=== PATIENT | male | born 1995 | race Caucasian/White ===

== ENCOUNTER 2020-08-03 17:18 | Emergency (ER) | payer OTHER, SELFPAY ==
[2020-08-03 17:30] VITALS: BP 130/72; PULSE 78; RESP 18; TEMP 36.6; O2SAT 98
[2020-08-03] MEDS: methylPREDNISolone ACETATE 40 MG/ML VIAL 80 MG IM (17:32)
--- NOTE | 2020-08-03 17:32 | ED.SKABFB ---
HPI - Skin/Abscess/Foreign Bdy General Chief complaint: Skin/Abscess/Foreign Body Stated complaint: rash Source: patient Mode of arrival: ambulatory Limitations: no limitations History of Present Illness HPI narrative: this patient has a macular rash over his chest and abdomen that he has had for over a year itchy and currently tender and with some mild pain with no fever chills no shortness of breath no nausea vomiting no abdominal pain currently not exposed to any irritants as far as he knows. complaint: rash Onset (ago): year(s) Tetanus up to date: no Location: chest Severity: moderate Quality: aching Pain Consistency: constant Relieving factors: none Exacerbating factors: none Context: none Associated symptoms: denies other symptoms Related Data Allergies Allergy/AdvReac Type Severity Reaction Status Date / Time No Known Allergies Allergy Verified 08/03/20 17:29 Review of Systems Review of Systems: All systems reviewed & are unremarkable except as noted in HPI and below PMFSH Past Medical History Medical History Rash Social History Social History Gender identity (if verbalized by the patient): Male Exam Const: General: no acute distress Orientation/consciousness: patient oriented x3 HENMT: Head: normal to inspection Eyes: Conjunctivae: conjunctivae normal Pupils: Equal, round and reactive pupils present EOM: EOMs intact bilaterally Neck: Neck: normal visual inspection Chest: Chest palpation & inspection: normal inspection of the chest Resp: Effort & Inspection: normal respiratory effort Auscultation: clear to auscultation bilaterally Cardio: Rate: regular rate Rhythm: regular rhythm GI: GI Palp: Yes Soft to palpation : Testes: Testes normal Urinary Catheter: Urinary Catheter: patent and draining Back/Spine/Pelvis: Back: no CVA tenderness Skin: Other: red macular rash over chest and abdomen Neuro: General: patient oriented x3, moves all extremities and no meningeal signs Extrem: General: normal to inspection and no pedal edema Course Course Emergency Course: patient received a Depo-Medrol 80 mg IM and advised to take Benadryl and to follow-up and establish care with a primary care physician. Critical Care Time Critical Care Time Critical Care Time: No Discharge Plan Discharge Clinical Impression: Rash Patient Disposition: Home, Self-Care Condition: Stable Instructions: Antibiotic Form, Acute Rash (ED) Additional Instructions: take medicine as prescribed and follow-up with primary care physician within 1 week for further evaluation treatment. Prescriptions: New prednisone 20 mg tablet 20 mg PO DAILY Qty: 7 RF: 0 Follow-up/Referrals: UNKNOWN,DOCTOR [Primary Care Provider] - Time of Disposition: 17:36
[2020-08-03 17:40] VITALS: BP 132/72; PULSE 72; RESP 16; TEMP 36.8; O2SAT 96
== END 2020-08-03 17:43 | disposition home or self-care (01) ==
PROVIDERS: Emergency Provider Emergency Medicine
DX: R21 Rash and other nonspecific skin eruption (principal)
CPT/HCPCS: 96372; 99283; J1030

== ENCOUNTER 2022-05-21 23:52 | Emergency (ER) | payer OTHER, SELFPAY ==
[2022-05-21 23:55] VITALS: BP 138/90; PULSE 81; RESP 14; TEMP 36.5; O2SAT 99
--- NOTE | 2022-05-22 00:13 | ED.GENADULT ---
HPI - General Adult General Chief complaint: Psychiatric Symptoms Stated complaint: suicide Time Seen by Provider: 05/22/22 01:35 History of Present Illness HPI narrative: Ezekiel is a 26M with a PMH of tobacco abuse and tinea versicolor that was brought in by EMS for SI. He reports that he may have depression at baseline. He was at home drinking and watching the news when he called the hotline. He stated that he just needed somebody to talk to. He reportedly had feelings that it would be easier if he was gone but he has not intention, much less a plan on acting on these at this time. Related Data Home Medications Medication Instructions Recorded Confirmed melatonin 3 mg PO DAILY 05/22/22 05/22/22 Allergies Allergy/AdvReac Type Severity Reaction Status Date / Time No Known Allergies Allergy Verified 05/22/22 00:14 Review of Systems Review of Systems: All systems reviewed & are unremarkable except as noted in HPI and below PMFSH Past Medical History Medical History Rash Social History Social History Years smoked: 10 Smoking status: Current every day smoker Alcohol intake: current Alcohol use details: social Substance use: never Substance use type: does not use Living arrangements: with family Gender identity (if verbalized by the patient): Male Exam Const: General: healthy appearing and no acute distress Nutritional Appearance: well nourished Orientation/consciousness: patient oriented x3 HENMT: Head: normal to inspection Eyes: Conjunctivae: conjunctivae normal Pupils: Equal, round and reactive pupils present EOM: EOMs intact bilaterally Neck: Neck: normal visual inspection Chest: Chest palpation & inspection: normal inspection of the chest Resp: Effort & Inspection: normal respiratory effort Auscultation: clear to auscultation bilaterally Cardio: Rate: regular rate Rhythm: regular rhythm GI: Inspection: non-distended GI Palp: Yes Soft to palpation and No Tenderness to palpation present (GI) Back/Spine/Pelvis: Back: no CVA tenderness Skin: General skin exam: normal color Neuro: General: patient oriented x3 and moves all extremities Cranial nerves: Yes Nystagmus not present Extrem: General: normal to inspection Psych: Mental Status: mental status grossly normal Affect: normal affect Course Course Emergency Course: Ordered labs and EKG. EKG showed NSR with a rate of 71, normal axis, no ST elevation/depression or ectopy Care transferred to Dr. Mao at 0130 Vital Signs Vital signs: Vital Signs Temperature 97.7 F 05/21/22 23:55 Pulse Rate 81 05/21/22 23:55 Respiratory Rate 14 05/21/22 23:55 Blood Pressure 138/90 05/21/22 23:55 Pulse Oximetry 99 05/21/22 23:55 Temperature 97.7 F 05/21/22 23:55 Pulse Rate 78 05/22/22 06:52 Respiratory Rate 12 05/22/22 06:52 Blood Pressure 122/88 05/22/22 06:52 Pulse Oximetry 99 05/22/22 06:52 Medical Decision Making Vital Signs Vital Signs: Vital Signs Temperature 97.7 F 05/21/22 23:55 Pulse Rate 81 05/21/22 23:55 Respiratory Rate 14 05/21/22 23:55 Blood Pressure 138/90 05/21/22 23:55 Pulse Oximetry 99 05/21/22 23:55 Temperature 97.7 F 05/21/22 23:55 Pulse Rate 78 05/22/22 06:52 Respiratory Rate 12 05/22/22 06:52 Blood Pressure 122/88 05/22/22 06:52 Pulse Oximetry 99 05/22/22 06:52 Lab Data 05/22/22 00:13 05/22/22 00:13 Labs: Lab Results 05/22/22 05/22/22 05/22/22 Range/Units 00:13 00:13 00:13 WBC 9.5 (4.8-10.8) K/mm3 RBC 5.51 (4.70-6.10) M/mm3 Hgb 17.2 (14.0-18.0) g/dL Hct 52.8 (40.0-54.0) % MCV 95.8 (78.0-102.0) fL MCH 31.2 H (27.0-31.0) pg MCHC 32.6 (32.0-36.0) g/dL RDW 13.4 (11.6-14.4) % Plt Count 297 (150-420) K/mm3 MPV 10.2 (8.7-11.0) f
--- NOTE | 2022-05-22 00:15 | ECG_ITS ---
Measurements Intervals [place] Rate: 71 P: 54 NE: 182 QRS: 86 QRSD: 110 T: 47 QT: 369 QTc: 402 Interpretive Statements SINUS RHYTHM NORMAL ECG NO PREVIOUS ECG AVAILABLE FOR COMPARISON Electronically Signed On 05-22-2022 8:14:51 CDT by Sudheer Mims D.O.
[2022-05-22 00:20] LABS: Appearance Urine Clear (Clear); Bilirubin Urine Negative (Negative); Blood Urine Negative (Negative); Color Urine Light Yellow (Yellow); Glucose Urine UA Negative (Negative); Ketones Urine Negative (Negative); Leukocyte Esterase Ur Negative LEU/UL (Negative); Nitrate Urine Negative (Negative); Protein Urine Negative (Negative); Specific Grav Ur <= 1.005 (1.010-1.020); Urobilinogen Urine 0.2 mg/dL (0.2-1.0)
[2022-05-22 00:21] LABS: Hematocrit 52.8 % (40.0-54.0); Hemoglobin 17.2 g/dL (14.0-18.0); Mean Corpuscular HGB Conc 32.6 g/dL (32.0-36.0); Mean Corpuscular Hemoglobin 31.2 pg (27.0-31.0); Mean Corpuscular Volume 95.8 fL (78.0-102.0); Mean Platelet Volume 10.2 fl (8.7-11.0); Platelet Count Result 297 K/mm3 (150-420); Red Blood Count 5.51 M/mm3 (4.70-6.10); Red Cell Distribution Width 13.4 % (11.6-14.4); White Blood Count 9.5 K/mm3 (4.8-10.8)
[2022-05-22 00:26] LABS: Add Urine Microscopic? NO; Amphetamine Screen Urine Negative (Negative); Barbiturate Screen Urine Negative (Negative); Benzodiazepines Screen Urine Negative (Negative); Cannabinoid Screen Urine Negative (Negative); Cocaine Screen Urine Negative (Negative); Methadone Screen Urine Negative (Negative); Opiate Screen Urine Negative (Negative); Phencyclidine Screen Urine Negative (Negative)
[2022-05-22 00:33] LABS: Acetaminophen < 2 ug/mL (10-30); Alanine Aminotransferase 43 U/L (16-63); Alkaline Phosphatase 77 U/L (46-116); Anion Gap 13 mmol/L (8-16); Aspartate Amino Transferase 48 U/L (15-37); Bilirubin,Total 0.3 mg/dL (0.00-1.00); Blood Urea Nitrogen 12 mg/dL (7-18); Calcium 8.9 mg/dL (8.5-10.1); Carbon Dioxide 22 mmol/L (21-32); Chloride 104 mmol/L (98-108); Estimated CRCL calculation 168 ml/min; Estimated Glomerular Filt Rate > 60; Ethanol 154 mg/dL (0-6); Glucose 101 mg/dL (70-99); Osmolality Calculated 287 mOsm/kg (285-295); Potassium 5.5 mmol/L (3.5-5.1); Salicylate 6.7 mg/dL (2.8-20.0); Sodium 139 mmol/L (136-145); Total Protein 8.4 g/dL (6.4-8.2)
[2022-05-22 00:41] LABS: Band Neutrophils Percent 0 % (0-6); Basophils Percent Manual 0 % (0-1); Eosinophils Absolute Manual 0.66 K/mm3 (0.02-0.5); Eosinophils Percent Manual 7 % (1-6); Lymphocytes Absolute Manual 3.32 K/mm3 (1.1-4.5); Lymphocytes Percent Manual 35 % (18-44); Monocytes Absolute Manual 0.66 K/mm3 (0.1-0.90); Monocytes Percent Manual 7 % (3-9); Neutrophils Absolute Manual 4.84 K/mm3 (1.3-6.7); Neutrophils Percent Manual 51 % (46-73); Platelet Estimate Adequate (Adequate); Total Cells Counted 100
[2022-05-22 00:56] LABS: SARS-CoV-2 RNA PCR Negative (Negative)
[2022-05-22] MEDS: NICOTINE (*PBKC) 21 MG PATCH 1 PATCH TRANSDERM (01:10)
--- NOTE | 2022-05-22 01:35 | ED.GENADULT ---
HPI - General Adult General Chief complaint: Psychiatric Symptoms Stated complaint: suicide Time Seen by Provider: 05/22/22 01:35 History of Present Illness HPI narrative: I TOOK OVER FROM THE PREVIOUS PROVIDER IN THE MANAGEMENT OF THIS PATIENT. PLEASE REFER TO THEIR NOTE FOR FURTHER DETAILS. In brief, the patient is a 26-year-old male with suicidal ideation, without a plan, who is also currently intoxicated, with an alcohol level of 154 at midnight. He is not homicidal, has no hallucinations. He is not medically cleared at this point. Repeat alcohol level pending for 3:30 a.m.. The patient remained stable. He has previously been hospitalized for Behavioral Health, with them in the past. He currently denies being suicidal, just wants to talk to someone. No somatic complaints. Related Data Home Medications Medication Instructions Recorded Confirmed melatonin 3 mg PO DAILY 05/22/22 05/22/22 Allergies Allergy/AdvReac Type Severity Reaction Status Date / Time No Known Allergies Allergy Verified 05/22/22 00:14 Review of Systems Review of Systems: All systems reviewed & are unremarkable except as noted in HPI and below Constitutional: Constitutional: Reports as per HPI, Reports no additional constitutional complaints, Denies chills, Denies excessive sweating, Denies fatigue, Denies fever(s), Denies headache(s) and Denies weakness Eyes: Eyes: Reports as per HPI, Reports no additional eye complaints, Denies change in vision and Denies photophobia ENT: Reports system reviewed and no additional complaints, except as documented, Reports as per HPI, Denies dysphagia, Denies vertigo, Denies dizziness, Denies headache(s), Denies lip swelling, Denies nasal congestion, Denies sore throat, Denies throat swelling and Denies tongue swelling Cardiovascular: Cardiovascular: Reports as per HPI, Reports no additional cardiovascular complaints, Denies chest pain, Denies syncope, Denies rapid heart rate and Denies dyspnea Respiratory: Respiratory: Reports as per HPI, Reports no additional respiratory complaints, Denies chest congestion, Reports cough (chronic smoker's cough), Denies dyspnea and Denies wheezing Gastrointestinal: Gastrointestinal: Reports as per HPI, Reports no additional gastrointestinal complaints, Denies abdominal pain, Denies constipation, Denies dysphagia, Denies diarrhea, Denies nausea and Denies vomiting Genitourinary: Genitourinary: Reports as per HPI, Denies hematuria, Denies oliguria, Denies dysuria, Denies urinary frequency, Denies urinary incontinence and Denies urinary urgency Musculoskeletal: Musculoskeletal: Reports no additional musculoskeletal complaints, Denies back pain, Denies myalgias, Denies arthralgias, Denies joint swelling and Denies numbness Integumentary/Breasts: Skin/Breast: Reports system reviewed and no additional complaints, except as docu, Denies pruritus, Denies erythema, Denies rash and Denies skin ulcer Neurologic: Reports system reviewed and no additional complaints, except as documented, Reports as per HPI, Denies confusion, Denies vertigo, Denies dizziness, Denies syncope, Denies headache(s), Denies focal weakness, Denies numbness and Denies weakness Psychiatric: Psychiatric: Reports as per HPI, Denies anxiety, Denies confusion, Denies depression, Denies homicidal ideation and Reports suicidal ideation (ideation but no plan; and now denies suicidal ideation: wants to talk only) Endocrine: Endocrine: Reports no additional endocrine complaints, Denies excessive sweating, Denies fatigue, Denies polydipsia and Denies polyuria Hematologic/Lymphatic: Hematologic/Lymphatic: Reports no additional hematologic/lymphatic complaints, Denies easy bleeding and Denies easy bruising Allergic/Immunologic: Allergic/Immunologic: Reports no additional allergic/immunologic complaints, Denies lip swelling, Denies throat swelling, Denies tongue swelling and Denies wheezing PMFSH Past Medical History Medical Hist
[2022-05-22 03:48] LABS: Ethanol 74 mg/dL (0-6)
[2022-05-22 06:52] VITALS: BP 122/88; PULSE 78; RESP 12; O2SAT 99
== END 2022-05-22 07:17 | disposition home or self-care (01) ==
PROVIDERS: Emergency Provider Emergency Medicine
DX: F32.A Depression, unspecified (principal); F10.129 Alcohol abuse with intoxication, unspecified; F17.210 Nicotine dependence, cigarettes, uncomplicated; Z20.822 Contact with and (suspected) exposure to COVID-19; Y90.3 Blood alcohol level of 60-79 mg/100 ml
CPT/HCPCS: 36415; 80053; 80307; 81003; 85025; 93005; 99284; A9270; U0003; U0005

== ENCOUNTER 2022-05-30 21:41 | Emergency (ER) | payer OTHER, SELFPAY ==
[2022-05-30 21:58] VITALS: BP 123/76; PULSE 90; RESP 16; TEMP 36.3; O2SAT 100
--- NOTE | 2022-05-30 22:05 | ED.GENADULT ---
HPI - General Adult General Chief complaint: Psychiatric Symptoms <French Miguel MD - Last Filed: 05/30/22 22:07> Stated complaint: si <Fernch Miguel MD - Last Filed: 05/30/22 22:07> Time Seen by Provider: 05/30/22 21:43 <French Miguel MD - Last Filed: 05/30/22 22:07> History of Present Illness HPI narrative: A 26-year-old male presenting ED for suicidal ideation. Patient is intoxicated. He was at a bar drinking throughout most the day and told some people to bar that he was thinking of hurting himself. They called police and then the patient was brought to the hospital for psychiatric evaluation. At this time the patient is denying suicidal or homicidal ideation. He does have access to a firearm at home. He has attempted suicide in the past by hanging but was unable to go through with it. He denies other drugs. Denies visual or auditory hallucinations. Denies history of psychiatric illness. <French Miguel MD - Last Filed: 05/30/22 22:07> Related Data Home medications: Home Medications Medication Instructions Recorded Confirmed melatonin 3 mg PO DAILY 05/22/22 05/22/22 <French Miguel MD - Last Filed: 05/30/22 22:07> Allergies/adverse reactions: Allergies Allergy/AdvReac Type Severity Reaction Status Date / Time No Known Allergies Allergy Verified 05/30/22 22:06 <French Miguel MD - Last Filed: 05/30/22 22:07> [facility] Past Medical History Medical History: Medical History Rash <French Miguel MD - Last Filed: 05/30/22 22:07> Social History Social History: Social History Years smoked: 10 Smoking status: Current every day smoker Alcohol intake: current Alcohol use details: social Substance use: never Substance use type: does not use Living arrangements: with family Gender identity (if verbalized by the patient): Male <French Miguel MD - Last Filed: 05/30/22 22:07> Exam Narrative: APPEARANCE: No apparent distress. Head: atraumatic. EYES: EOMI, NOSE: Atraumatic NECK: Trachea midline RESPIRATORY: No increased rate of breathing CARDIOVASCULAR: RRR, ABDOMINAL: Non-distended MUSCULOSKELETAl: No obvious deformities NEURO: Alert. Moving 4/4 extremities SKIN:: Warm, dry. Normal color PSYCHIATRIC: Normal affect <French Miguel MD - Last Filed: 05/30/22 22:07> Course Reevaluation(s) Reevaluation #1: Patient was evaluated by the crisis counselor and was agreeable with discharge. Patient did sign a safety agreement. All question concerns were addressed and patient was comfortable with the plan for discharge and close follow-up. Patient was well-appearing at time of discharge. <Rony Cope MD - Last Filed: 05/31/22 18:22> Vital Signs Vital signs: Vital Signs Temperature 97.4 F L 05/30/22 21:58 Pulse Rate 90 05/30/22 21:58 Respiratory Rate 16 05/30/22 21:58 Blood Pressure 123/76 05/30/22 21:58 Pulse Oximetry 100 05/30/22 21:58 Oxygen Delivery Room Air 05/30/22 21:58 Temperature 97.4 F L 05/30/22 21:58 Pulse Rate 70 05/31/22 08:52 Respiratory Rate 12 05/31/22 08:52 Blood Pressure 144/76 H 05/31/22 08:52 Pulse Oximetry 98 05/31/22 08:52 Oxygen Delivery Room Air 05/30/22 21:58 <French Miguel MD - Last Filed: 05/30/22 22:07> Vital Signs Temperature 97.4 F L 05/30/22 21:58 Pulse Rate 90 05/30/22 21:58 Respiratory Rate 16 05/30/22 21:58 Blood Pressure 123/76 05/30/22 21:58 Pulse Oximetry 100 05/30/22 21:58 Oxygen Delivery Room Air 05/30/22 21:58 Temperature 97.4 F L 05/30/22 21:58 Pulse Rate 70 05/31/22 08:52 Respiratory Rate 12 05/31/22 08:52 Blood Pressure 144/76 H 05/31/22 08:52 Pulse Oximetry 98 05/31/22 08:52 Oxygen Delivery Room Air 05/30/22 21:58 <Rony Cope MD - Last Filed:
[2022-05-30 22:23] LABS: Appearance Urine Clear (Clear); Bilirubin Urine Negative (Negative); Blood Urine Negative (Negative); Color Urine Yellow (Yellow); Glucose Urine UA Negative (Negative); Ketones Urine Negative (Negative); Leukocyte Esterase Ur Negative LEU/UL (Negative); Nitrate Urine Negative (Negative); Protein Urine Negative (Negative); Specific Grav Ur 1.003 (1.001-1.035); Urobilinogen Urine 0.2 mg/dL (<2.0)
[2022-05-30 22:25] LABS: Add Urine Microscopic? NO; Basophils Absolute Auto 0.1 K/mm3 (0.0-0.1); Basophils Percent Auto 1.1 % (0.2-1.2); Eosinophils Absolute Auto 0.8 K/mm3 (0-0.3); Eosinophils Percent Auto 8.4 % (0-4.4); Hematocrit 53.9 % (42.0-52.0); Hemoglobin 18.4 g/dL (14.0-18.0); Immature Granulocyte Absolute 0.07 K/mm3 (0.00-0.031); Immature Granulocyte Percent A 0.7 % (0-0.5); Lymphocytes Absolute Auto 2.47 K/mm3 (0.9-3.2); Lymphocytes Percent Auto 24.9 % (18.3-44.2); Mean Corpuscular HGB Conc 34.1 g/dl (32-36); Mean Corpuscular Hemoglobin 31.3 pg (26-34); Mean Corpuscular Volume 91.8 fl (80-100); Mean Platelet Volume 9.8 fl (7.4-10.4); Monocytes Absolute Auto 0.4 K/mm3 (0.1-0.6); Monocytes Percent Auto 3.7 % (2.6-8.5); Neutrophils Absolute Auto 6.1 K/mm3 (1.3-6.7); Neutrophils Percent Auto 61.2 % (45.5-73.1); Platelet Count Result 331 k/mm3 (150-375); Red Blood Count 5.87 M/mm3 (4.6-6.20); Red Cell Distribution Width 13.5 % (11.5-14.5); White Blood Count 9.9 K/mm3 (4.5-10.0)
[2022-05-30 22:28] LABS: Acetaminophen < 10 ug/mL (10-30); Ethanol 240 mg/dL (<10); Salicylate < 1.0 mg/dL (2-20)
[2022-05-30 22:29] LABS: Alanine Aminotransferase 47 U/L (6-50); Albumin Level 5.5 g/dL (3.5-5.1); Alkaline Phosphatase 72 U/L (38-126); Anion Gap 12 mmol/L (8-16); Aspartate Amino Transferase 36 U/L (17-59); Bilirubin,Total 0.3 mg/dL (0.2-1.3); Blood Urea Nitrogen 10 mg/dL (9-20); Calcium 9.6 mg/dL (8.4-10.2); Carbon Dioxide 32 mmol/L (22-30); Chloride 106 mmol/L (98-107); Estimated CRCL calculation 123 ml/min; Estimated Glomerular Filt Rate > 60; Glucose 100 mg/dL (65-110); Potassium 4.7 mmol/L (3.4-5.0); Sodium 150 mmol/L (137-145)
[2022-05-30 22:36] LABS: Amphetamine Screen Urine Negative (Negative); Barbiturate Screen Urine Negative (Negative); Benzodiazepines Screen Urine Negative (Negative); Cannabinoid Screen Urine Negative (Negative); Cocaine Screen Urine Negative (Negative); Methadone Screen Urine Negative (Negative); Opiate Screen Urine Negative (Negative); Phencyclidine Screen Urine Negative (Negative)
[2022-05-30 22:58] LABS: Influenza A QL RT-PCR Negative (Negative); Influenza B QL RT-PCR Negative (Negative); SARS-CoV-2 RNA PCR Negative
[2022-05-30] MEDS: NICOTINE (*PBKC) 14 MG PATCH 1 PATCH TRANSDERM (23:19)
[2022-05-31 01:31] VITALS: BP 143/86; PULSE 88; RESP 17; O2SAT 96
[2022-05-31 05:26] LABS: Ethanol 57 mg/dL (<10)
--- NOTE | 2022-05-31 05:45 | PC.NURSE ---
crisis called to evaluate patient
[2022-05-31 06:38] VITALS: BP 139/91; PULSE 88; RESP 18; O2SAT 96
[2022-05-31 08:52] VITALS: BP 144/76; PULSE 70; RESP 12; O2SAT 98
== END 2022-05-31 08:53 | disposition home or self-care (01) ==
PROVIDERS: Emergency Provider Emergency Medicine
DX: R45.851 Suicidal ideations (principal); F10.120 Alcohol abuse with intoxication, uncomplicated; F17.200 Nicotine dependence, unspecified, uncomplicated
CPT/HCPCS: 36415; 80053; 80307; 81003; 84443; 85025; 87636; 99283; A9270

== ENCOUNTER 2022-08-24 18:26 | Emergency (ER) | payer OTHER, SELFPAY ==
[2022-08-24 18:26] VITALS: BP 135/76; PULSE 65; RESP 18; TEMP 36.5; O2SAT 96
[2022-08-24] MEDS: ACETAMINOPHEN 500 MG TABLET 1000 MG PO (18:33)
[2022-08-24 19:12] VITALS: BP 115/64; PULSE 93; RESP 16; TEMP 36.6; O2SAT 98
--- NOTE | 2022-08-24 19:15 | PC.NURSE ---
Pt resting comfortably at this time. Denies pain. Call light in reach. Side rail up x1. Pt voices no needs at this time. Pt updated on expected time for result of nasal swab.
[2022-08-24 19:18] LABS: Influenza A QL RT-PCR Negative (Negative); Influenza B QL RT-PCR Negative (Negative); SARS-CoV-2 RNA PCR Negative (Negative)
[2022-08-24 19:19] LABS: RSV RNA, RT-PCR Negative (Negative)
--- NOTE | 2022-08-24 19:24 | ED.URI ---
HPI - URI/Sore Throat General Chief Complaint: Upper Respiratory Infection Stated Complaint: upper resp symptoms Time Seen by Provider: 08/24/22 18:30 Source: patient Mode of arrival: ambulatory Limitations: no limitations History of Present Illness HPI Narrative: This is a 26-year-old male who presents with cough congestion with nasal congestion runny nose clear nasal discharge with no shortness of breath does have a mild cough with congestion no fever chills no nausea vomiting no abdominal pain no chest pain. MD elicited complaint: cough, rhinorrhea and nasal congestion Description of mucous: clear Exacerbating factors: nothing Related Data Allergies Allergy/AdvReac Type Severity Reaction Status Date / Time No Known Allergies Allergy Verified 05/30/22 22:06 Review of Systems Review of Systems: All systems reviewed & are unremarkable except as noted in HPI and below PMFSH Past Medical History Medical History Rash Social History Social History Years smoked: 10 Smoking status: Current every day smoker Alcohol intake: current Alcohol use details: social Substance use: never Substance use type: does not use Living arrangements: with family Gender identity (if verbalized by the patient): Male Exam Const: General: healthy appearing Nutritional Appearance: well nourished Orientation/consciousness: patient oriented x3 Limitations: no limitations HENMT: Head: normal to inspection Face and sinus: normal facial exam Mouth: Yes Normal oral and palatal mucosa present Teeth and gingiva: dentition normal Eyes: Conjunctivae: conjunctivae normal Neck: Neck: normal visual inspection and no lymphadenopathy Chest: Chest palpation & inspection: normal inspection of the chest Resp: Effort & Inspection: normal respiratory effort Auscultation: clear to auscultation bilaterally Cardio: Rate: regular rate Rhythm: regular rhythm GI: GI Palp: Yes Soft to palpation Auscultation: normal bowel sounds Course Course Emergency Course: Tylenol was given, and COVID influenza RSV negative. Vital Signs Vital signs: Vital Signs Temperature 36.5 C 08/24/22 18:26 Pulse Rate 65 08/24/22 18:26 Respiratory Rate 18 08/24/22 18:26 Blood Pressure 135/76 08/24/22 18:26 Pulse Oximetry 96 08/24/22 18:26 Oxygen Delivery Room Air 08/24/22 18:26 Temperature 36.6 C 08/24/22 19:12 Pulse Rate 93 08/24/22 19:12 Respiratory Rate 16 08/24/22 19:12 Blood Pressure 115/64 08/24/22 19:12 Pulse Oximetry 98 08/24/22 19:12 Oxygen Delivery Room Air 08/24/22 19:12 MDM - URI/Sore Throat Lab Data Labs: Lab Results 08/24/22 Range/Units 18:30 Influenza A (RT-PCR) Negative (Negative) Influenza B (RT-PCR) Negative (Negative) RSV (RT-PCR) Negative (Negative) SARS-CoV-2 RNA (RT-PCR) Negative (Negative) Critical Care Time Critical Care Time Critical Care Time: No Discharge Plan Discharge Clinical Impression: Viral infection Patient Disposition: Home, Self-Care Condition: Stable Instructions: Antibiotic Form, Viral Syndrome (ED) Additional Instructions: Take medicine as prescribed, can continue to take NyQuil and Tylenol or Motrin and follow up with primary care physician is symptoms persist or worsen. Prescriptions: New benzonatate 200 mg capsule 200 mg PO TID Qty: 20 0RF Follow-up/Referrals: Bill Gonsalez DO [Primary Care Provider] - Time of Disposition: 19:32
== END 2022-08-24 19:44 | disposition home or self-care (01) ==
PROVIDERS: Emergency Provider Emergency Medicine; PCP Family Medicine
DX: B34.9 Viral infection, unspecified (principal); F17.210 Nicotine dependence, cigarettes, uncomplicated; Z20.822 Contact with and (suspected) exposure to COVID-19
CPT/HCPCS: 87637; 99283

== ENCOUNTER 2023-12-11 13:58 | Emergency (ER) | payer OTHER, SELFPAY ==
[2023-12-11 13:58] VITALS: BP 127/76; PULSE 84; RESP 12; TEMP 36.4; O2SAT 100; O2SAT 99
--- NOTE | 2023-12-11 14:04 | PC.NURSE ---
covid/flu/rsv swab collected same time as strep
[2023-12-11 14:44] LABS: Strep Group A RT-PCR NOT DETECTED (Negative)
[2023-12-11 14:48] LABS: SARS-CoV-2 RNA PCR Negative (Negative)
[2023-12-11 14:51] LABS: Influenza A QL RT-PCR Negative (Negative); Influenza B QL RT-PCR Negative (Negative); RSV RNA, RT-PCR Negative (Negative)
--- NOTE | 2023-12-11 14:54 | ED.URI ---
HPI - URI/Sore Throat General Chief Complaint: Upper Respiratory Infection Stated Complaint: sore throat Time Seen by Provider: 12/11/23 13:58 Source: patient Mode of arrival: ambulatory Limitations: no limitations History of Present Illness HPI Narrative: this is a 28-year-old male presents with some mild cough and scratchy throat with nasal congestion and discharge with no fever chills no shortness of breath no nausea vomiting. MD elicited complaint: cough and sore throat Onset (ago): day(s) Severity: mild Description of mucous: clear and watery Related Data Home Medications Medication Instructions Recorded Confirmed No Home Medications 12/11/23 12/11/23 Allergies Allergy/AdvReac Type Severity Reaction Status Date / Time No Known Allergies Allergy Verified 12/11/23 14:00 Review of Systems Review of Systems: All systems reviewed & are unremarkable except as noted in HPI and below PMFSH Past Medical History Medical History Rash Social History Social History Years smoked: 10 Smoking status: Current every day smoker Alcohol intake: current Alcohol use details: social Substance use: never Substance use type: does not use Living arrangements: with family Gender identity (if verbalized by the patient): Male Exam Const: General: healthy appearing, no acute distress and alert Nutritional Appearance: well nourished Orientation/consciousness: patient oriented x3 HENMT: Head: normal to inspection Other: Nasal congestion with some clear nasal discharge Neck: Neck: normal visual inspection, no lymphadenopathy and no meningeal signs Chest: Chest palpation & inspection: normal inspection of the chest Resp: Effort & Inspection: normal respiratory effort Auscultation: clear to auscultation bilaterally Cardio: Rate: regular rate Rhythm: regular rhythm GI: GI Palp: Yes Soft to palpation Auscultation: normal bowel sounds Skin: General skin exam: normal color Rashes: no rashes Neuro: General: patient oriented x3 and moves all extremities Course Course Emergency Course: he had strep and COVID RSV influenza performed which were all negative and advised patient to follow-up with primary Vital Signs Vital signs: Vital Signs Temperature 36.4 C 12/11/23 13:58 Pulse Rate 84 12/11/23 13:58 Respiratory Rate 12 12/11/23 13:58 Blood Pressure 127/76 12/11/23 13:58 Pulse Oximetry 99 12/11/23 13:58 Oxygen Delivery Room Air 12/11/23 13:58 Temperature 36.4 C 12/11/23 13:58 Pulse Rate 84 12/11/23 13:58 Respiratory Rate 12 12/11/23 13:58 Blood Pressure 127/76 12/11/23 13:58 Pulse Oximetry 100 12/11/23 13:58 Oxygen Delivery Room Air 12/11/23 13:58 MDM - URI/Sore Throat Lab Data Labs: Lab Results 12/11/23 Range/Units 13:59 Influenza A (RT-PCR) Negative (Negative) Influenza B (RT-PCR) Negative (Negative) RSV (RT-PCR) Negative (Negative) SARS-CoV-2 RNA (RT-PCR) Negative (Negative) Group A Strep (PCR) Not detected (Negative) Critical Care Time Critical Care Time Critical Care Time: No Discharge Plan Discharge Clinical Impression: Viral infection Patient Disposition: Home, Self-Care Condition: Stable Instructions: Antibiotic Form, Viral Syndrome (ED) Additional Instructions: advised to rest drink plenty of fluids and follow up with primary if symptoms persist or worsen. Prescriptions: No Action No Home Medications Follow-up/Referrals: UNKNOWN,DOCTOR [Primary Care Provider] - Time of Disposition: 14:58
[2023-12-11 15:02] VITALS: BP 127/76; PULSE 84; RESP 12; TEMP 36.4; O2SAT 100
== END 2023-12-11 15:02 | disposition home or self-care (01) ==
PROVIDERS: Emergency Provider Emergency Medicine
DX: B34.9 Viral infection, unspecified (principal); F17.210 Nicotine dependence, cigarettes, uncomplicated; Z20.822 Contact with and (suspected) exposure to COVID-19
CPT/HCPCS: 87637; 87651; 99283